=== PATIENT | male | born 1950 | race Caucasian/White ===

== ENCOUNTER 2017-11-08 06:36 | Day surgery (SDC) | payer MEDICARE ==
[~2017-11-08] VITALS: Ht 185.4 cm; Wt 100.0 kg
[~2017-11-08 06:36] MED LIST: ASPI81 PO; LORTA10 PO; METO10TA PO; OMEP20TA PO; SIMV20TA PO; TOPR25TA2 PO
[2017-11-08 06:53] VITALS: BP 151/92; PULSE 75; RESP 20; TEMP 98; O2SAT 96
[2017-11-08] MEDS ORDERED: OMEP20TA93 PO (07:10)
[2017-11-08] MEDS ORDERED: SIMV40TA PO (07:10)
[2017-11-08] MEDS ORDERED: METO1TAB42 PO (07:10)
[2017-11-08] MEDS ORDERED: ASPI81CH6 CHEW (07:10)
[2017-11-08] MEDS ORDERED: SODIUM CHLORIDE 0.9% 1000 ML IV SCH (07:15)
[2017-11-08] MEDS ORDERED: VANCOMYCIN 1000 MG/NS 250 ML - implanted port/tunneled catheter IV SCH ×2 (07:15)
[2017-11-08] MEDS ORDERED: POVIDONE IODINE 5% (ANTISEPSIS KIT) 4 APPLICATIONS EACH NARE SCH (07:15)
[2017-11-08] MEDS ORDERED: ceFAZolin 2 GM PREMIX 50 ML - implanted port/tunneled catheter insertion IV SCH (07:15)
[2017-11-08] MEDS ORDERED: CHLORHEXIDINE GLUCONATE 2 % 1 PACK (2 CLOTHS) TOPICAL SCH (07:15)
[2017-11-08 08:08] LABS: INTERNATIONAL NORMALIZED RATIO 1.1 RATIO; PROTHROMBIN TIME - PATIENT 11.5 SEC (9.8-11.6)
[2017-11-08] MEDS ORDERED: MIDAZOLAM HCL 2 MG/2 ML VIAL ONE ×2 (08:13→08:53)
[2017-11-08] MEDS ORDERED: SODIUM CHLORIDE 0.9% FLUSH 10 ML FLUSH IVF PRN (09:15)
--- NOTE | 2017-11-08 09:15 | PD.RAD ---
Post Procedure Progress Note Pre Procedure Diagnosis: (1) Lymphoma Post Procedure Diagnosis: (1) Lymphoma Procedure Date: Nov 08, 2017 Supervising Radiologist: Vinny Henderson Estimated blood loss: 3cc Anesthesia: Local, Conscious Sedation Plan of Activity Patient to Unit: ROPU Patient Condition: Fair Additional Comments: Port placed via the right IJ Catheter in good position OK for use Full dictated report to follow See PACS Report for procedural detail/treatment Vinny Henderson MD Nov 08, 2017 09:15
[2017-11-08 09:25] VITALS: BP 142/86; PULSE 75; RESP 18; TEMP 97.5; O2SAT 95
[2017-11-08 09:40] VITALS: BP 141/81; PULSE 65; RESP 18; O2SAT 95
[2017-11-08 09:55] VITALS: BP 134/78; PULSE 65; RESP 18; O2SAT 95
[2017-11-08 10:30] VITALS: BP 131/76; PULSE 65; RESP 18; O2SAT 95
--- NOTE | 2017-11-08 13:12 | RADRPT ---
EXAM DATE/TIME: 11/08/2017 09:49 [facility] COMPARISON: No previous studies available for comparison. INDICATIONS : Patient having port placed for treatment of non hodgkins lymphoma,. MEDICAL HISTORY : 1.high cholestrol 2. migraine 3. GERD 4. mesenteric mass SURGICAL HISTORY : 1Gall bladder removed 2. colonoscopy 3. upper endoscopy 4. abdominal hernia repair ENCOUNTER: Initial ACUITY: 1 year PAIN SCORE: 0/10 FLUORO TIME: 0.5 minutes IMAGE SERIES: 1 SEDATION TIME: 30 minutes ACCESS: Right internal jugular vein SEDATION: 1.) 3 mg midazolam (Versed) IV 2.) 150 mcg fentanyl (Sublimaze) IV Prophylactic antibiotics were administered with appropriate pre-procedure timing. Vancomycin within 2 hours of procedure, Ancef (or alternative) within 1 hour of procedure. DEVICE: 1. [address] single [address] PROCEDURE : 1. Continuous pulse oximetry and EKG monitoring. 2. Intravenous conscious sedation. 3. Ultrasound guidance for venous access. 4. Fluoroscopic guided implantable central venous port placement. The patient was placed supine. The neck was prepped in sterile fashion. Full sterile technique was u sed, including cap, mask, sterile gloves and gown, and a large sterile sheet. Hand hygiene and 2% ch lorhexidine Betadine was utilized per protocol for cutaneous antisepsis with appropriate dry time for site. Sterile gel and sterile probe cover were utilized for ultrasound guidance. The skin and sub cutaneous tissues were infiltrated with local anesthetic solution. Under direct ultrasound guidance, central venous access was accomplished in the targeted vessel. The ultrasound images depicting access guidance were stored and saved to PACS for permanent record. A s ubcutaneous pocket was created using blunt dissection. The port was introduced to the pocket. The po rt was sewn to the chest wall. The catheter tubing was fed through a subcutaneous tunnel to the veno anel site. The catheter tubing was cut to a suitable length and then was introduced through a valved Peel-Away sheath and positioned with catheter tubing tip at the cavo-atrial junction level. The poc ket incision was closed with subcuticular Vicryl suture. Steri-Strips were applied. The port was fl ushed and locked with heparin solution per protocol. Sterile dressing was applied to the site. The patient tolerated the procedure well. Conscious sedation was performed with the prescribed dosages and duration as above in the presence of an independent trained radiology nurse to assist in the monitoring of the patient. EKG and oximetry remained stable throughout the procedure. The patient tolerated the procedure well and there were no complications. The patient was sent to post anesthesia recovery in stable condition. CONCLUSION: Uncomplicated ultrasound and fluoroscopic guided implanted central venous port catheter placement as described in detail above. An 8 Hungarian Power port was placed. Vinny Henderson MD on November 08, 2017 at 13:06 Board Certified Radiologist. This report was verified electronically.
== END 2017-11-08 11:10 | disposition home or self-care (01) ==
LOC: HROP 06:36 → HRIP 06:39 → HROP 11:10
PROVIDERS: ATTEND Internal Medicine Hematology & Oncology
DX: C85.83 Other specified types of non-Hodgkin lymphoma, intra-abdominal lymph nodes (principal); K21.9 Gastro-esophageal reflux disease without esophagitis; G43.909 Migraine, unspecified, not intractable, without status migrainosus
CPT/HCPCS: 36561; 76937; 77001; 85610; 85730; 99152; 99153; C1788; J0690; J1642; J2250; J3010; J3370; J7030; J7050

== ENCOUNTER 2018-04-14 06:27 | Day surgery (SDC) | payer MEDICARE ==
[~2018-04-14] VITALS: Ht 182.9 cm; Wt 90.5 kg
[~2018-04-14 06:27] MED LIST changes: -ASPI81 PO; +ASPI81CH6 CHEW; -LORTA10 PO; -METO10TA PO; +METO1TAB42 PO; -OMEP20TA PO; +OMEP20TA93 PO; -SIMV20TA PO; +SIMV40TA PO; -TOPR25TA2 PO
[2018-04-14] MEDS ORDERED: SODIUM CHLORIDE 0.9% 1000 ML IV SCH (07:15)
[2018-04-14] MEDS ORDERED: ceFAZolin 2 GM PREMIX 50 ML - implanted port removal IV SCH (07:15)
[2018-04-14 07:20] VITALS: BP 139/83; PULSE 68; RESP 20; TEMP 97.9; O2SAT 94
[2018-04-14 07:51] LABS: INTERNATIONAL NORMALIZED RATIO 1.1 RATIO; PROTHROMBIN TIME - PATIENT 11.3 SEC (9.8-11.6)
[2018-04-14] MEDS ORDERED: SODIUM BICARBONATE 8.4% INJ 50 ML ONE (08:13)
[2018-04-14] MEDS ORDERED: LIDOCAINE 1%/EPINEPHrine 1:100,000 SOLN 30 ML VIAL ONE (08:13)
--- NOTE | 2018-04-14 09:09 | PD.RAD ---
Post Procedure Progress Note Pre Procedure Diagnosis: (1) Lymphoma Post Procedure Diagnosis: (1) Lymphoma Procedure Date: Apr 14, 2018 Supervising Radiologist: Vinny Henderson Estimated blood loss: 3cc Anesthesia: Local Plan of Activity Patient to Unit: ROPU Patient Condition: Good Additional Comments: Port removed from the right chest without difficulty Full dictated report to follow See PACS Report for procedural detail/treatment Vinny Henderson MD Apr 14, 2018 09:09
[2018-04-14 09:15] VITALS: BP 127/65; PULSE 74; RESP 18; TEMP 97.5; O2SAT 94
[2018-04-14 09:30] VITALS: BP 137/66; PULSE 72; RESP 18; O2SAT 94
--- NOTE | 2018-04-14 15:44 | RADRPT ---
INDICATIONS: Patient with history of lymphoma in need of port removal following completion of treatm ent. CLINICAL DATA: This is the patient's initial encounter. Patient reports that signs and symptoms have been present for 4 - 6 months and indicates a pain score of 0/10. Location: Upper Chest, Laterality: Right MEDICAL/SURGICAL HISTORY: Gastroesophageal reflux disease. High cholesterol.Low grade lymphoma. Migraine.Mesenteric Mass.Ruptured L5 disc. . Gall bladder removed.Colonoscopy.Upper endoscopy.Abdomi nal hernia repair. COMPARISON: No prior exams available for comparison. FLUORO TIME (min): IMAGE SERIES: 0 ACCESS SITE: SEDATION TIME (min): CONTRAST (cc): MEDICATION(S): DEVICE(S): . . PROCEDURE: 1. Removal of Odubbs-d-besk. 2. Conscious sedation with continuous EKG and oximetry monitoring. The risk, benefits and potential complications of Zinwdw-d-Tufx removal were discussed. Written conse nt was obtained. The patient was placed supine. The chest wall was prepped in sterile fashion. Full sterile techniqu e was used, including cap, mask, sterile gloves and gown, and a large sterile sheet. Hand hygiene an d 2% chlorhexidine and/or Betadine/alcohol prep was utilized per protocol for cutaneous antisepsis. The skin and subcutaneous tissues were infiltrated with local anesthetic solution. A small incision w as made, the subcutaneous pocket was opened. The port was dissected from the subcutaneous tissues and easily removed in one piece. The pocket incision was closed with subcuticular Vicryl suture. Steri -Strips were applied. No sedation was administered. EKG and oximetry remained stable throughout the procedure. The patient tolerated the procedure well and there were no complications. The patient was sent to post anesthesi a recovery in stable condition. CONCLUSION: 1. Uncomplicated port removal as above. Electronically signed by: Vinny Henderson MD 04/14/2018 3:43 PM EDT
== END 2018-04-14 10:00 | disposition home or self-care (01) ==
LOC: HROP 06:27 → HRIP 06:28 → HROP 10:00
PROVIDERS: ATTEND Internal Medicine Hematology & Oncology
DX: Z45.2 Encounter for adjustment and management of vascular access device (principal); C85.83 Other specified types of non-Hodgkin lymphoma, intra-abdominal lymph nodes; R00.0 Tachycardia, unspecified; E78.00 Pure hypercholesterolemia, unspecified; Z79.82 Long term (current) use of aspirin
CPT/HCPCS: 36590; 85610; 85730